=== PATIENT | female | born 1955 | race Caucasian/White ===

== ENCOUNTER → 2016-07-17 | Outpatient (CLI) | payer MEDICAID ==
--- NOTE | 2016-07-17 15:02 | MA ---
Bilateral Diagnostic Digital Mammogram With Tomosynthesis Clinical Indications: History of recent left breast retroareolar redness and swelling, now resolved Technique: Standard digital cephalocaudal and tomosynthesis mediolateral oblique projections were ob tained. A true lateral digital view is performed of the left breast. The digital images were processe d by the Swarm[employer] computer aided detection system. Comparison: None available. Breast density: D; The breast tissue is extremely dense. This may lower the sensitivity of mammograph y. Findings: CAD was reviewed. There is extremely dense asymmetric breast parenchyma behind the left nip ple which could obscure an underlying abnormality. No suspicious findings are identified. Impression: Negative mammogram. BI-RADS 1. Recommendation: We will proceed to sonography for further evaluation. This will occur shortly. BI-RADS 0. Additional imaging left breast [facility] will send a result letter to the patient. Negative mammography should not preclude additional workup of a clinically suspicious finding. The patient's information is entered into a reminder system with a target due date for her next mammo gram.
--- NOTE | 2016-07-17 15:54 | US ---
Left Breast Ultrasound History: Recent redness and pain behind lateral left areola, resolved Comparison: Diagnostic mammogram earlier Technique: I first performed a directed physical examination. This was followed by ultrasound exam with a high frequency linear transducer. Findings: On physical examination, with the patient in the right lateral decubitus position, there is an easily palpable small firm nodule in or directly beneath the lateral left areola. Directed sonogr aphy of this nodule reveals a 4 x 2.5 mm hypoechoic solid nodule, associated with a focal overlying l ocal skin bulge that likely represents a sebaceous cyst. There is no increased Doppler blood flow. Th is is occult, even in retrospect, on the previous mammogram. Impression: Suspect small areolar sebaceous cyst. Recommend 6 month follow-up ultrasound to ensure st ability. Results and recommendation were discussed with the patient, who is in agreement with the lupe n. I demonstrated to the patient how she could feel this nodule on her own self exam. I instructed he r to return for follow-up ultrasound if the nodule increases in size. There is 3. Probably benign.
== END ==
LOC: FIMAGING 14:07
PROVIDERS: ATTEND Nurse Practitioner Women's Health
DX: N64.59 Other signs and symptoms in breast (principal); R92.8 Other abnormal and inconclusive findings on diagnostic imaging of breast
CPT/HCPCS: G0204; G0279

== ENCOUNTER 2016-08-19 06:28 | Day surgery (SDC) | payer MEDICAID ==
[2016-08-04 11:49] LABS: ANION GAP 10 mEq/L (8-16); CALCIUM 10.3 mg/dL (8.5-10.4); CARBON DIOXIDE 25 mEq/l (22-31); CHLORIDE 105 mEq/L (97-110); CREATININE 0.8 mg/dL (0.6-1.0); GLOMERULAR FILTRATION RATE > 60; GLUCOSE 82 mg/dL (70-100); POTASSIUM 4.7 mEq/L (3.5-5.2); SODIUM 140 mEq/L (134-144)
[2016-08-19] MEDS ORDERED: LR 1,000 ML IV ONE (06:53)
[2016-08-19] MEDS ORDERED: MIDAZOLAM 2 MG/2 ML VIAL ONE (07:36)
[2016-08-19] MEDS ORDERED: PROPOFOL/EMULSION 500 MG/50 ML BOTTLE IV ONE (07:37)
[2016-08-19] MEDS ORDERED: LIDOCAINE 2% 100 MG/5 ML SYR ONE (07:46)
--- NOTE | 2016-08-19 08:47 | GPN ---
[f rep st] PROCEDURE NOTE PREPROCEDURE DIAGNOSIS: Hematochezia, blood in her stool. POSTPROCEDURE DIAGNOSIS: Normal colonoscopy. Poor colon preparation. MEDICATIONS: Monitored anesthesia care. INDICATIONS: The patient is a 61-year-old female with intermittent hematochezia. She has never had a screening colonoscopy. She is here for a diagnostic colonoscopy. The risks and the benefits of the procedure were discussed with the patient and consent obtained. Risks include, but not limited to, bleeding, perforation, and sedation. The patient is ASA class 2. DESCRIPTION OF PROCEDURE: The pediatric colonoscope was advanced into the cecum , which appeared normal. There was stool found throughout the colon. Approximately 30% of the colon wall could not be seen. No large polyps or colon cancer were seen. Polyps less than 1 cm could have been missed. The patient has a floppy colon with looping. Retroflexed views in the rectum were normal. IMPRESSION: 1. Poor colonoscopy preparation, not adequate for screening purposes. 2. No findings to explain blood in the stool. RECOMMENDATIONS: 1. Discharge to home with escort. 2. Advance diet as tolerated. 3. Continue current medications. 4. Repeat colonoscopy at next available appointment with GoLYTELY preparation with the addition of 1 dose of magnesium citrate. Recommend using the adult colonoscope for next colonoscopy given the floppy nature of her colon. I thank you for allowing me to participate in the care of your patient. Please do not hesitate to call with questions. /[id number]/MODL MTDD
== END 2016-08-19 09:05 | disposition home or self-care (01) ==
LOC: FSGY 06:28
PROVIDERS: ATTEND Internal Medicine Gastroenterology
PROC: 0DJD8ZZ Inspection of Lower Intestinal Tract, Via Natural or Artificial Opening Endoscopic (ICD-10-PCS; principal; 2016-08-19 07:45)
DX: K92.1 Melena (principal)
CPT/HCPCS: J2001; J2250; J2704

== ENCOUNTER → 2017-08-04 | Outpatient (CLI) | payer MEDICAID | LOC: FIMAGING 10:01 | PROVIDERS: ATTEND Family Medicine | DX: R91.1 Solitary pulmonary nodule (principal) ==

== ENCOUNTER → 2017-09-24 | Outpatient (CLI) | payer MEDICAID ==
[~2017-09-24] MED LIST: LIDOCAINE 1% 300 MG/30 ML SDV ONE
== END ==
LOC: FIMAGING 14:07
PROVIDERS: ATTEND Internal Medicine Hematology & Oncology
PROC: 07B53ZX Excision of Right Axillary Lymphatic, Percutaneous Approach, Diagnostic (ICD-10-PCS; principal; 2017-09-24)
PROC: BP48ZZZ Ultrasonography of Right Shoulder (ICD-10-PCS; principal; 2017-09-24)
DX: R91.1 Solitary pulmonary nodule (principal); R93.8 Abnormal findings on diagnostic imaging of other specified body structures
CPT/HCPCS: 88184-90; 88185-91

== ENCOUNTER 2017-10-14 08:03 | Inpatient (IN) | payer MEDICAID ==
--- NOTE | 2017-10-13 19:48 | GHP ---
[f rep st] HISTORY AND PHYSICAL DATE OF ADMISSION: 10/14/2017 HISTORY OF PRESENT ILLNESS: The patient is a 62-year-old woman with a history of chronic tobacco use , who recently had a PET-CT to evaluate an increasing right upper lobe lung nodule. It showed increa se in the nodule from 9 mm in 2006 to 16 mm. It has low FDG uptake. There is also a right axillary lymph node that was more PET avid. Biopsy was obtained that did not show adenocarcinoma. She quit smoking a couple months ago. PAST MEDICAL HISTORY: COPD, depression, hyperlipidemia. PAST SURGICAL HISTORY: Appendectomy, cervical spine fusion, eye surgery. MEDICATIONS: Meloxicam. ALLERGIES: No known drug allergies. FAMILY HISTORY: Prostate cancer. SOCIAL HISTORY: She recently quit tobacco use. REVIEW OF SYSTEMS: 10-point review of systems negative, except per HPI. PHYSICAL EXAMINATION: GENERAL: Pleasant, well-nourished, well-groomed woman. HEENT: Normocephalic . No gross hearing deficits. Mucous membranes moist. Pupils equal and round. No scleral icterus. LUNGS: Clear to auscultation bilaterally. No increased work of breathing. CARDIAC: Regular rate. No peripheral edema. SKIN: Warm and dry. MUSCULOSKELETAL: Normal gait. Normal nails. PSYCH: Mood appropriately tearful. IMPRESSION: A 62-year-old woman with a lung nodule increasing in size and strong tobacco history. I t is also PET avid. This likely represents cancer. PLAN: I will take her to the operating room for mediastinoscopy. If that is negative, then I will p roceed with VATS right upper lobectomy. The risks and benefits including, but not limited to, stroke, heart attack, , bleeding, infectio n, prolonged air leak, and oxygen dependence, were discussed. /[id number]/MODL
[2017-10-14] MEDS ORDERED: BUPIVACAINE 0.5% 30 ML SDV ONE (08:09)
[2017-10-14] MEDS ORDERED: ceFAZolin 2 GM/SWFI 2 GM/20 ML SYR IVP ONE (08:20)
[2017-10-14] MEDS ORDERED: LR 1,000 ML IV ONE (08:22)
[2017-10-14] MEDS ORDERED: LIDOCAINE 1% 2 ML INJ ID PRN (08:22)
--- NOTE | 2017-10-14 08:55 | PDHPUP ---
History & Physical Update H&P update statement: This history and physical update is based on an assessment of the patient which was completed after admission or registration (within 24 hours), but prior to the surgery/procedure. H&P update: H&P reviewed & patient examined, no change in patient's condition since H&P completed
[2017-10-14] MEDS ORDERED: MIDAZOLAM 2 MG/2 ML VIAL IVP ONE (09:54)
[2017-10-14] MEDS ORDERED: MIDAZOLAM 2 MG/2 ML VIAL ONE (09:55)
[2017-10-14] MEDS ORDERED: fentaNYL 100 MCG/2 ML INJ ONE ×2 (10:00→16:11)
[2017-10-14] MEDS ORDERED: PROPOFOL 200 MG/20 ML VIAL ONE (10:00)
--- NOTE | 2017-10-14 14:02 | PDANEPAE ---
ANE History of Present Illness mediastinoscopy, vats ANE Past Medical History - Cardiovascular History Hx Hypertension: No Hx Arrhythmias: No Hx Chest Pain: No Hx Coronary Artery / Peripheral Vascular Disease: No Hx CHF / Valvular Disease: Yes Hx Palpitations: No Cardiovascular History Comment: diagnosed with mitral valve prolapse at [facility] 15 years. bradycardic. high cholesterol - Pulmonary History Hx COPD: No Hx Asthma/Reactive Airway Disease: No Hx Recent Upper Respiratory Infection: No Hx Oxygen in Use at Home: No Hx Sleep Apnea: No Sleep Apnea Screening Result - Last Documented: Negative Pulmonary History Comment: MASS UPPER R LOBE LUNG. QUIT SMOKING RECENTLY - Neurologic History Hx Cerebrovascular Accident: No Hx Seizures: No Hx Dementia: No Neurologic History Comment: MIGRAINES - Endocrine History Hx Diabetes: No Endocrine History Comment: prediabetic 2016 - Renal History Hx Renal Disorders: No - Liver History Hx Hepatic Disorders: No - Neurological & Psychiatric Hx Hx Neurological and Psychiatric Disorders: Yes Neurological / Psychiatric History Comment: anxiety. OCC NECK PAIN AND LOW BACK PAIN-ARTHRITIS - Cancer History Hx Cancer: Yes Cancer History Comment: STAGE 1 LUNG CA - Congenital Disorder History Hx Congenital Disorders: No - GI History Hx Gastrointestinal Disorders: No Gastrointestinal History Comment: OCC HEARTBURN - Other Health History Other Health History: BURSITIS L HIP. missing molars - Chronic Pain History Chronic Pain: No - Surgical History Prior Surgeries: R total hip 5-17. appy. neck fusion C4-C7 2007. tubal ligation. bilat cataract surgeries ANE Review of Systems Review of Systems: - Exercise capacity METS (RN): 4 METS ANE Patient History - Allergies Allergies/Adverse Reactions: No Known Allergies Allergy (Verified 10/14/17 08:29) - Home Medications Home Medications: Acetaminophen [Tylenol ES 500 mg (*)] 500 mg PO Q6 PRN 10/09/17 [Last Taken 01/23 09:00] LORazepam [Ativan (*)] 0.5 mg PO BID 10/13/17 [Last Taken 10/14/17 06:00] - NPO status NPO Status: no food or drink >8 hours NPO Since - Liquids (Date): 10/14/17 NPO Since - Liquids (Time): 06:00 NPO Since - Solids (Date): 10/13/17 NPO Since - Solids (Time): 20:00 - Smoking Hx Smoking Status: Former smoker - Family Anes Hx Family Hx Anesthesia Complications: mother-emotional ANE Labs/Vital Signs - Vital Signs Blood Pressure: 109/65 Heart Rate: 51 Respiratory Rate: 16 O2 Sat (%): 98 Height: 175.26 cm Weight: 63.957 kg ANE Physical Exam - Airway Mallampati Score: Class 2 Mouth exam: normal dental/mouth exam - Pulmonary Pulmonary: no respiratory distress - Cardiovascular Cardiovascular: regular rate and rhythym - ASA Status ASA Status: II ANE Anesthesia Plan Anesthesia Plan: general endotracheal anesthesia Lines/Monitors: arterial line Specialized Airway: double lumen tube
[2017-10-14] MEDS ORDERED: THROMBIN(HUM PLAS)/FIBRINOG/CA 5 ML VIAL TP ONE (15:22)
[2017-10-14] MEDS ORDERED: NS 500 ML IV PRN (16:05)
[2017-10-14] MEDS ORDERED: NALOXONE HCL 0.4 MG/ML INJ IVP PRN (16:05)
[2017-10-14] MEDS ORDERED: ONDANSETRON 4 MG/2 ML VIAL IVP PRN ×2 (16:05→16:14)
[2017-10-14] MEDS ORDERED: LR 500 ML IV PRN (16:05)
[2017-10-14] MEDS ORDERED: PHENYLEPHRINE HCL 100 MCG/ML SYR IVP PRN (16:05)
[2017-10-14] MEDS ORDERED: ALBUTEROL 3 ML DEYVIAL IH PRN (16:05)
--- NOTE | 2017-10-14 16:05 | POSTANESTH ---
Post Anesthetic Evaluation Cardiovascular Status: Normal, Stable Respiratory Status: Normal, Stable Level of Consciousness/Mental Status: Can Participate in Eval Pain Control: Adequate, Prn Tx Ordered Nausea/Vomiting Control: Adequate, Prn Tx Ordered Complications Possibly Related to Anesthesia: None Noted
[2017-10-14] MEDS ORDERED: HYDROmorphONE/DILAUDID 2 MG/ML INJ ONE (16:10)
[2017-10-14] MEDS: HYDROmorphONE/DILAUDID 2 MG/ML INJ IVP PRN ×2 (16:12→16:28)
[2017-10-14] MEDS ORDERED: ONDANSETRON DISINTEGRATING 4 MG TAB PO PRN (16:14)
[2017-10-14] MEDS ORDERED: LACTULOSE 20 GM/30 ML UDCUP PO PRN (16:17)
[2017-10-14] MEDS ORDERED: BISACODYL 10 MG SUPP PR PRN (16:17)
[2017-10-14] MEDS ORDERED: MAGNESIUM HYDROXIDE 30 ML UDCUP PO PRN (16:17)
[2017-10-14] MEDS ORDERED: POLYETHYLENE GLYCOL 3350 17 GM PKT PO PRN (16:17)
[2017-10-14] MEDS: fentaNYL 100 MCG/2 ML INJ IVP PRN ×2 (16:19→16:27)
--- NOTE | 2017-10-14 16:19 | POSTOPPROG ---
Post Op Note Date of Operation: 10/14/17 Surgeon: Jacqueline Rucker Fiscal Clerk: jessica Anesthesiologist: hailee Anesthesia: GET(General Endotracheal) Pre-op Diagnosis: lung mass Post-op Diagnosis: lung mass Indication: 62 yo smoker with pet avid lung mass Procedure: mediastinoscopy and vats RUL Findings: small air leak Inf/Abcess present in the surg proc area at time of surgery?: No EBL: 100-500 Drains: Other (chest tube) Specimen(s): lymph nodes and right upper lobe
[2017-10-14] MEDS: KETOROLAC 15 MG/1 ML SDV IVP SCH (17:56)
[2017-10-14] MEDS: oxyCODONE IR 5 MG TAB PO PRN ×2 (17:57→21:22)
[2017-10-14] MEDS: SENNOSIDES/DOCUSATE SODIUM TAB PO SCH ×2 (18:01→21:21)
[2017-10-14] MEDS: ACETAMINOPHEN 500 MG TAB PO SCH (21:21)
[2017-10-14] MEDS: PATCH REMOVAL 1 EA PATCH TD SCH (21:36)
[2017-10-15] MEDS: KETOROLAC 15 MG/1 ML SDV IVP SCH ×4 (00:04→17:50)
[2017-10-15] MEDS: oxyCODONE IR 5 MG TAB PO PRN ×2 (04:31→08:16)
[2017-10-15 04:56] LABS: PLATELET COUNT 252 10^3/uL (150-400)
[2017-10-15] MEDS: ACETAMINOPHEN 500 MG TAB PO SCH ×3 (06:11→21:20)
--- NOTE | 2017-10-15 07:11 | PDMN ---
Medical Necessity Medical necessity: IP only surgery; cpt 17957 & [id number] w vats RUL lobectomy
[2017-10-15] MEDS: SENNOSIDES/DOCUSATE SODIUM TAB PO SCH ×2 (08:57→21:18)
[2017-10-15] MEDS: ENOXAPARIN 40 MG/0.4 ML SYR SC SCH (08:58)
[2017-10-15] MEDS: LIDOCAINE 4%/MENTHOL 1% PATCH TD SCH (08:59)
--- NOTE | 2017-10-15 11:21 | ASMTCASEMG ---
Living Arrangements What is your living Answers: Alone arrangement? Who do you live with? Type Of Residence What kind of residence do Answers: Apartment you live in? Discharge Plan Comments Coordination Status Comments Notes: Patient is a 62yo woman who recently had a PET-CT showing an increase from 9mm to 16mm in a right upper lobe lung nodule. Patient will get surgery. No therapies have been ordered at this time. D/C plan TBD. CM will follow. Date Signed: 10/15/2017 11:20 AM Electronically Signed By:Angella Silva LCSW
[2017-10-15] MEDS: traMADol 50 MG TAB PO PRN ×2 (13:53→21:18)
--- NOTE | 2017-10-15 18:32 | SOAPPROG ---
SOAP Progress Note Assessment/Plan: Assessment: POD # 1 s/p mediastinoscopy and right upper lobectomy for presumed lung cancer Pain controlled with pain meds Cough deep breath Chest tube to water seal (no pneumo on cxr) amy aguiar transfer to floor S: Pain controlled O: Incisions cdi Good effort breathing No airleak Regular rate Plan: 10/15/17 18:30 Objective: Vital Signs Temp Pulse Resp BP Pulse Ox 36.9 C 58 L 16 91/45 L 90 L 10/15/17 16:00 10/15/17 16:00 10/15/17 16:00 10/15/17 16:00 10/15/17 16:00 Laboratory Results 10/15/17 04:41 10/15/17 04:41 10/14/17 10/15/17 10/16/17 05:59 05:59 05:59 Intake Total 3000 500 Output Total 1220 500 Balance 1780 0 ICD10 Worksheet Patient Problems: Problems Problem Status Onset Lung mass Acute - ICD10 Problem Qualifiers (1) Lung mass
[2017-10-15] MEDS: PATCH REMOVAL 1 EA PATCH TD SCH (21:22)
[2017-10-16] MEDS: KETOROLAC 15 MG/1 ML SDV IVP SCH ×4 (00:09→18:31)
[2017-10-16] MEDS: ACETAMINOPHEN 500 MG TAB PO SCH ×2 (05:30→14:11)
--- NOTE | 2017-10-16 09:03 | SOAPPROG ---
SOAP Progress Note Assessment/Plan: Assessment/Plan: 62yo F POD#2 s/p VATS right upper lobectomy for lung cancer Path pending Chest tube to water seal Min air leak with cough CXR no pneumo Keep chest tube today and will poss remove tomorrow if air leak improved Regular diet, bowel protocol Cough, deep breath, IS, ambulate Dispo: continue inpatient. Seen c Dr. Rucker. S: coughing all morning. Pain controlled. No fevers. O: Sitting upright in bed, comfortable, NAD No increased WOB. Clear, decreased right upper chest RRR Chest incisions CDI Chest tube serosanguinous fluid. Small air leak with cough Objective: Vital Signs Temp Pulse Resp BP Pulse Ox 37.0 C 65 16 117/61 93 10/16/17 07:40 10/16/17 07:40 10/16/17 07:40 10/16/17 07:40 10/16/17 07:40 Laboratory Results 10/15/17 04:41 10/15/17 04:41 10/15/17 10/16/17 10/17/17 05:59 05:59 05:59 Intake Total 3000 950 Output Total 1220 750 60 Balance 1780 200 -60 ICD10 Worksheet Patient Problems: Problems Problem Status Onset Lung mass Acute
[2017-10-16] MEDS: LIDOCAINE 4%/MENTHOL 1% PATCH TD SCH (09:19)
[2017-10-16] MEDS: ENOXAPARIN 40 MG/0.4 ML SYR SC SCH (09:19)
[2017-10-16] MEDS: SENNOSIDES/DOCUSATE SODIUM TAB PO SCH ×2 (09:21→20:59)
[2017-10-16] MEDS: traMADol 50 MG TAB PO PRN (20:58)
[2017-10-16] MEDS: PATCH REMOVAL 1 EA PATCH TD SCH (20:59)
[2017-10-17] MEDS: KETOROLAC 15 MG/1 ML SDV IVP SCH ×3 (00:42→12:22)
[2017-10-17] MEDS: LIDOCAINE 4%/MENTHOL 1% PATCH TD SCH (09:04)
[2017-10-17] MEDS: ENOXAPARIN 40 MG/0.4 ML SYR SC SCH (09:04)
[2017-10-17] MEDS: SENNOSIDES/DOCUSATE SODIUM TAB PO SCH (09:05)
--- NOTE | 2017-10-17 09:49 | SOAPPROG ---
SOAP Progress Note Assessment/Plan: Assessment: POD # 3 s/p mediastinoscopy and right upper lobectomy for hamartoma Pain controlled with pain meds Cough deep breath Removed chest tube. If no pneumothorax, then dc home this afternoon. S: Pain controlled O: Incisions cdi Good effort breathing No airleak Regular rate Plan: 10/15/17 18:30 10/17/17 09:48 Objective: Vital Signs Temp Pulse Resp BP Pulse Ox 37.1 C 56 L 16 116/65 91 L 10/17/17 08:00 10/17/17 08:00 10/17/17 08:00 10/17/17 08:00 10/17/17 08:00 Laboratory Results 10/15/17 04:41 10/15/17 04:41 10/16/17 10/17/17 10/18/17 05:59 05:59 05:59 Intake Total 950 Output Total 750 160 Balance 200 -160 ICD10 Worksheet Patient Problems: Problems Problem Status Onset Lung mass Acute - ICD10 Problem Qualifiers (1) Lung mass
[2017-10-17 11:24] VITALS: BP 117/72
--- NOTE | 2017-10-17 16:26 | ASMTCMCOM ---
CM Note CM Note Notes: Spoke w/RN, pt will dc independent, no therapies ordered. CM available for any changes. DC Plan: Independent. Date Signed: 10/17/2017 01:39 PM Electronically Signed By:Arabella Beyer RN
--- NOTE | 2017-10-17 16:26 | ASMTLACE ---
[facility] Length of stay for Answers: 3 days current admission Acuity / Level of Answers: Yes Care: Did the patient have an inpatient admission? Comorbidities - select Answers: Other Notes: increasing right upper all that apply lobe nodule # of Emergency department Answers: 0 visits in the last 6 months Score: 7 Date Signed: 10/17/2017 01:41 PM Electronically Signed By:Arabella Beyer RN
--- NOTE | 2017-11-05 08:19 | GOP ---
[f rep st] OPERATIVE REPORT DATE OF OPERATION: 10/17/2017 SURGEON: Jacqueline Rucker MD PRINCIPAL CYBER ENGINEER: Jeremiah Poe MD for the lobectomy. ANESTHESIA: Jan Merritt MD/General. PREOPERATIVE DIAGNOSIS: Right upper lobe lung mass that is PET avid. POSTOPERATIVE DIAGNOSIS: Right upper lobe lung mass that is PET avid. PROCEDURE PERFORMED: Mediastinoscopy and video-assisted thoracoscopic surgery, right upper lobectomy . FINDINGS: Small air leak. SPECIMENS: Lymph nodes from mediastinum and right upper lobectomy. INDICATIONS: The patient is a 62-year-old woman who has a long history of smoking. She also has a P ET avid lung mass. It is in the central portion of the right upper lobe and biopsy was not feasible . DESCRIPTION OF PROCEDURE: Patient was brought into the operating room, placed supine on the table an d general anesthesia was administered. Her neck was prepped and draped in the usual sterile fashion. It was extended. I made an incision at the sternal notch. I dissected down through the skin and s ubcutaneous tissues. I divided the strap muscles. I continued my dissection until I encountered the trachea. I created a space in this area. I inserted the mediastinum scope. I performed dissection . I was at the level of the innominate. I then was able to obtain lymph node samples and send them to Pathology. They returned negative. Hemostasis was achieved. I closed the straps with 0 Vicryl. I closed skin with 3-0 Vicryl followed by 4-0 Monocryl, Mastisol, Steri-Strips and a dressing were a pplied. She was then placed in the decubitus position with the right side up. She was prepped and d raped in the usual sterile fashion. Dr. Poe then entered the operating room. I placed a trocar in the posterior axillary line. The lung was down. I then placed additional posterior trocar, anterio r trocar and an additional lower trocar. I identified the venous drainage. I dissected the pulmonar y vein free by passing a blunt dissector around the vein. I then was able to place a vascular endosc opic stapling device to divide this. I continued to perform dissection and I was able to dissect adj acent pulmonary arteries from the surrounding tissues. I divided the branches again with the staplin g device. At one point, there was a small amount of bleeding, but I was able to control this with a clip. I was careful to identify the right upper lobe artery and make sure that I was not dissecting the main pulmonary artery. I was able to identify the intermedius artery as the blood supply to the middle and lower lobe before dividing the blood supply to the upper lobe. I flipped the lung and was able to observe anteriorly and performed additional dissection again taking another vein and artery. I also used a blue load stapler to transect the fissure. Once I had the lung remaining by the [facility], I then clamped it and had the anesthesiologist reinsufflate the lung. The middle lobe and lowe r lobe did come up. I then transected the upper lobe. I placed the lung in an EndoCatch bag, enlarg ed a port and then removed the lung. I then had him reinsufflate the remaining lung. There was a ve ry small air leak. I also noted that there was a small portion of the parenchyma of the upper lobe s till attached to the middle lobe. I was able to grasp this and perform additional staple loads to re move this area by an incomplete fissure. The small segment was also removed. I then re-immersed the lung and had several large breaths. I could identify a small air leak. I put a sealant device over the lung. The air leak stopped. I placed a 28-English chest tube directed toward the apex and I all owed anesthesia to re-expand the lung. The larger extraction incision was closed with 3-0 Vicryl fol lowed by 3-0 Vicryl and 4-0 Monocryl. The chest tube was sutured in place with 0 Vicryl. The other 2 port sites were closed with 4 Monocryl, Dermabond applied. She was awakened in the operating room, extubated and transferred to PACU in stable condition. Chest x-ray is pending. /[id number]/MODL
--- NOTE | 2017-11-05 11:56 | GDS ---
[f rep st] DISCHARGE SUMMARY DISCHARGE DIAGNOSES: 1. Enlarging right upper lobe lung mass, status post mediastinoscopy and right upper lobectomy, iden tified as a hamartoma. 2. History of recent tobacco use with cessation within 2 months of admission. 3. Chronic obstructive pulmonary disease. 4. Depression. 5. Dyslipidemia. 6. Previous appendectomy, cervical spine surgery, eye surgery. PROCEDURES: 1. 10/14/2017, mediastinoscopy and VATS right upper lobectomy. 2. 10/14/2017, chest tube placement. 3. Serial chest x-rays through the admission. 4. 10/17/2017, chest tube removal. PHYSICIAN: Dr. Jacqueline Rucker. HOSPITAL COURSE: Please see dictated H and P by Dr. Jacqueline Rucker for complete details. In brief, the patient is a 62-year-old female who was noted with a history of chronic tobacco use with recent cess ation, who had a PET-CT to evaluate an increasing right upper lobe nodule. This showed an increase i n the nodule from 9 mm in 2016 to 16 mm recently. This had a low FDG uptake. There was also a right axillary lymph node that was more PET avid. Biopsy was obtained preoperatively and this did not aaron w an adenocarcinoma. These findings were concerning for cancer, and therefore, she was taken to the operating room for med iastinoscopy and subsequent VATS with right upper lobectomy. This was complicated by an air leak and a chest tube was placed. Pathology showed a peritracheal lymph node biopsy without any metastatic c arcinoma. Right paratracheal lymph node had mild sinus histiocytosis and no metastatic carcinoma. 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 On day of discharge, patient's chest tube was removed. No pneumothorax was found on subsequent chest x-ray and patient was discharged. PHYSICAL EXAMINATION: VITAL SIGNS: On day of discharge, blood pressure 117/77, heart rate of 58, re spirations 14, O2 saturation 93% on room air, temp of 98.4 degrees Fahrenheit. CHEST: Incision was clean, dry, and intact. There is good effort breathing. No air leak. HEART: Regular rate and rhyt hm. LABORATORY DATA: CBC with WBC of 12.05, hematocrit 37.3, hemoglobin 12.9, platelet count 252. BMP w ith sodium 138, potassium 4.9, chloride 105, CO2 25, BUN 13, creatinine 0.7, glucose 121. RESULTS PENDING: None. DIET: Per previous. ACTIVITY: No heavy lifting, pushing, or pulling greater than 15 pounds with right arm for 4 weeks. Try to increase cough and deep breath. DISCHARGE MEDICATIONS: Please see medication reconciliation. She may take ibuprofen, Senokot, and t ramadol. She can continue her acetaminophen and lorazepam. FOLLOW UP: Follow up with Dr. Jacqueline Rucker in 10 days. /[id number]/MODL
== END 2017-10-17 13:57 | disposition home or self-care (01) | DRG 121 ==
LOC: F3E 08:03 → F2N 16:13 → F3E 10-15 13:26
PROVIDERS: ADMIT Surgery; ATTEND Surgery
PROC: 0BBC4ZX Excision of Right Upper Lung Lobe, Percutaneous Endoscopic Approach, Diagnostic (ICD-10-PCS; principal; 2017-10-14 09:30)
PROC: 07B74ZX Excision of Thorax Lymphatic, Percutaneous Endoscopic Approach, Diagnostic (ICD-10-PCS; principal; 2017-10-14 09:30)
PROC: 0BJQ4ZZ Inspection of Pleura, Percutaneous Endoscopic Approach (ICD-10-PCS; principal; 2017-10-14 09:30)
DX: D14.31 Benign neoplasm of right bronchus and lung (principal); J44.9 Chronic obstructive pulmonary disease, unspecified; F17.210 Nicotine dependence, cigarettes, uncomplicated; D72.9 Disorder of white blood cells, unspecified; F32.9 Major depressive disorder, single episode, unspecified; E78.5 Hyperlipidemia, unspecified; G43.909 Migraine, unspecified, not intractable, without status migrainosus; Z91.81 History of falling; Z86.73 Personal history of transient ischemic attack (TIA), and cerebral infarction without residual deficits; Z98.1 Arthrodesis status; Z96.641 Presence of right artificial hip joint
CPT/HCPCS: J0690; J1170; J1650; J1885; J2250; J2704; J3010

== ENCOUNTER → 2018-05-18 | Outpatient (CLI) | payer MEDICAID | LOC: FIMAGING 09:40 | PROVIDERS: ATTEND Internal Medicine Pulmonary Disease | DX: R13.10 Dysphagia, unspecified (principal); R06.00 Dyspnea, unspecified; J44.9 Chronic obstructive pulmonary disease, unspecified; Z90.2 Acquired absence of lung [part of] ==

== ENCOUNTER → 2018-05-20 | Outpatient (CLI) | payer MEDICAID | LOC: FIMAGING 07:53 | PROVIDERS: ATTEND Internal Medicine Pulmonary Disease | DX: K21.9 Gastro-esophageal reflux disease without esophagitis (principal); K22.8 Other specified diseases of esophagus ==